=== PATIENT | female | born 1995 | race Caucasian/White ===

== ENCOUNTER 2022-01-02 16:39 | Emergency (ER) | payer SELFPAY ==
[~2022-01-02] VITALS: Ht 160 cm; Wt 48.1 kg
[2022-01-02 16:50] VITALS: BP 123/52
--- NOTE | 2022-01-02 17:10 | NUR ---
PT AMB TO [facility] WITH ASST
--- NOTE | 2022-01-02 17:21 | NUR ---
Dr. Zamudio evaluating patient at bedside.
[2022-01-02] MEDS ORDERED: KETOROLAC 30 MG/ML VIAL IM ONE (17:35)
--- NOTE | 2022-01-02 17:43 | NUR ---
Lab at bedside.
--- NOTE | 2022-01-02 18:03 | NUR ---
Ultrasound at bedside.
[2022-01-02 18:07] LABS: BASOPHILS % (AUTO) 0.8 % (0.0-2.0); EOSINOPHILS # (AUTO) 0.2 K/uL (0-0.4); EOSINOPHILS % (AUTO) 3.2 % (0.0-4.0); HEMATOCRIT 37.1 % (36-48); HEMOGLOBIN 12.3 g/dL (12.0-16.0); LYMPHOCYTES # (AUTO) 1.5 K/uL (2.5-16.5); LYMPHOCYTES % (AUTO) 27.3 % (20.5-51.1); MEAN CORPUSCULAR HEMOGLOBIN 29 pg (27-31); MEAN CORPUSCULAR HGB CONC 33 g/dL (33-37); MEAN CORPUSCULAR VOLUME 86.3 fL (80-94); MONOCYTES # (AUTO) 0.4 K/uL (0.8-1.0); MONOCYTES % (AUTO) 6.9 % (1.7-9.3); NEUTROPHILS # (AUTO) 3.3 K/uL (1.8-7.7); NEUTROPHILS % (AUTO) 61.8 % (42.2-75.2); PLATELET COUNT (AUTO) 226 K/uL (140-450); RED CELL DISTRIBUTION WIDTH 13.2 % (11.6-13.7); WHITE BLOOD COUNT (AUTO) 5.3 K/uL (4.8-10.8)
[2022-01-02 18:24] LABS: ALBUMIN 3.8 g/dL (3.4-5.0); ANION GAP 11.1 (8-16); CARBON DIOXIDE 28.5 mmol/L (21-32); CREATININE 0.9 mg/dL (0.6-1.3); POTASSIUM 3.6 mmol/L (3.5-5.1); TOTAL BILIRUBIN 0.4 mg/dL (0.0-1.0)
[2022-01-02 18:28] LABS: APPEARANCE,URINE SL CLOUDY (CLEAR); BILIRUBIN,URINE NEGATIVE (NEGATIVE); BLOOD, URINE NEGATIVE (NEGATIVE); COLOR,URINE YELLOW (YELLOW); LEUKOCYTE ESTERASE ,URINE 2+ (NEGATIVE); NITRITE, URINE NEGATIVE (NEGATIVE); PH,URINE 6.5 (5.0-9.0); UGLUCOSE NEGATIVE (NEGATIVE)
--- NOTE | 2022-01-02 18:30 | NUR ---
26 y/o female bib self with c/o pelvic pain. Patient has been having intermittent vaginal bleeding. Patient is not currently experiencing vaginal bleeding at this time. Per patient she had large clots and was saturating 4 pads/day. Medical History: PCOS, Ovarian Cysts ALLERGY: SULFAS
[2022-01-02 18:43] LABS: OTHER CASTS, URINE None Seen /LPF (None Seen)
[2022-01-02 19:15] VITALS: BP 120/52
--- NOTE | 2022-01-02 19:15 | NUR ---
Report given to IGOR Goodwin for transfer of care.
--- NOTE | 2022-01-02 19:27 | NUR ---
RESUMED CARE OF PATIENT. PATIENT AAOX4 AND SITTING IN BED. BED LOW AND LOCKED. SIDE RAIL UP FOR SAFETY X1. PATIENT REQUESTED SNACKS.
--- NOTE | 2022-01-02 19:32 | NUR ---
CALLED US. STATED THAT THEY WOULD FOLLOW UP WITH US READING. NO ETA GIVEN.
--- NOTE | 2022-01-02 19:33 | NUR ---
ALBARO WALTERS STATED THAT CONRAD SWAB WAS NOT NECESSARY AT THIS TIME. SWAB CANCELLED.
--- NOTE | 2022-01-02 20:04 | NUR ---
FOLLOWED UP WITH US. STILL NO ETA ON WHEN THE US REPORT WILL BE COMPLETED
[2022-01-02] MEDS ORDERED: IBUP-1842 PO (20:18)
[2022-01-02] MEDS ORDERED: NITR100C7 PO (20:18)
[2022-01-02] MEDS ORDERED: PYR100 PO (20:18)
[2022-01-02] MEDS ORDERED: ACET-10509 PO (20:18)
--- NOTE | 2022-01-02 20:25 | NUR ---
ERMD AT BEDSIDE
--- NOTE | 2022-01-02 20:30 | NUR ---
Patient discharged with v/s stable. Written and verbal after care instructions given and explained. Patient alert, oriented and verbalized understanding of instructions. Ambulatory with steady gait. All questions addressed prior to discharge. ID band removed. Patient advised to follow up with PMD. Rx of ACETAMINOPHEN, IBUPROFEN, MACROBID, PYRIDIUM. given. Patient educated on indication of medication including possible reaction and side effects. Opportunity to ask questions provided and answered.
== END 2022-01-02 20:30 | disposition home or self-care (01) ==
LOC: MED 16:39
DX: N39.0 Urinary tract infection, site not specified (principal)
CPT/HCPCS: 36415; 76856; 80053; 81001; 81025; 85025; 87086; 93976; 96372; 99284; J1885; 87186